=== PATIENT | female | born 2000 | race Caucasian/White ===

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

== ENCOUNTER → 2020-06-19 | Outpatient (CLI) | payer OTHER ==
--- NOTE | 2020-06-19 12:45 | REP ---
INDICATION: PAIN IN RIGHT HIP. COMPARISON: None. TECHNIQUE: Four views of the bilateral sacroiliac joints. FINDINGS: The sacroiliac joints appear relatively symmetric and normal. No overt degenerative changes are appreciated. No obvious congenital abnormalities. The osseous structures are intact and normal. IMPRESSION: Normal bilateral sacroiliac joint radiograph series <Electronically signed by Tian Mariscal > 06/19/20 [id number]
--- NOTE | 2020-06-19 12:46 | REP ---
INDICATION: PAIN IN LEFT SHOULDER COMPARISON: None. TECHNIQUE: Internal rotation, external rotation, and Y view. FINDINGS: No acute fracture or dislocation. The acromioclavicular and glenohumeral joints are intact. No periarticular calcifications or degenerative changes are appreciated. Sub acromial space is normal. Surrounding soft tissues are unremarkable. IMPRESSION: Normal age-appropriate left shoulder radiographs. <Electronically signed by Tian Mariscal > 06/19/20 [id number]
== END ==
LOC: M RAD 12:04
PROVIDERS: ATTEND Nurse Practitioner Family
DX: M25.512 Pain in left shoulder (principal)